=== PATIENT | male | born 1955 | race Caucasian/White ===

== ENCOUNTER → 2016-04-12 | Outpatient (CLI) | payer OTHER ==
[~2016-04-12] MED LIST: ALLERGY RELIEF4 M1 PO; AMARYL2 MG PO; AMLODIPINE BESY10 MG PO; ASPIRIN EC81 M1 PO; ASPIRIN81 M2 PO; BENADRYL25 M1 PO; CLARITIN10 M2 PO; COUMADIN5 MG PO; DULERA 100 MCG/13 GM INH; EC-NAPROSYN500 MG PO; HYDROCHLOROTHIA25 MG PO; JANUVIA PO; K-DUR20 ME1 PO; LIPITOR40 MG PO; METOPROLOL TAR25 MG PO; MONTELUKAST SOD10 MG PO; PANTOPRAZOLE SO40 MG PO; PERCOCET 10/3251 TAB PO; PREDNISONE10 MG PO; PROAIR RESPICL90 MCG; REQUIP2 MG PO; SENOKOT S1 TA1 PO; TOPROL XL 50 MG50 MG PO; TRULICITY0.75 MG/0. SUBQ; TYLENOL EXTRA500 M1 PO
--- NOTE | ~2016-04-12 | EKG ---
PATIENT: JUAN ALBERTO FRY UNIT #: [id number] Ventricular Rate: 95 BPM Atrial Rate: 95 BPM P-R Interval: 174 ms QRS Duration: 92 ms Q-T Interval: 362 ms QTC Calculation(Bezet): 454 ms P [place]: 26 degrees Calculated R [place]: -35 degrees Calculated T [place]: 24 degrees Diagnosis Line: Normal sinus rhythm Diagnosis Line: Left axis deviation Diagnosis Line: Poor R wave progression questionable lead position Diagnosis Line: or body habitus Abnormal ECG Diagnosis Line: No previous ECGs available Diagnosis Line: Confirmed by DUSTIN HUGHES MD ([id number]) on 04/13/2016 Diagnosis Line: 6:17:03 PM INTERPRETING MD: ELLEN MADRIGAL
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
--- NOTE | ~2016-04-12 | CR63 ---
[facility] A Service of [facility] RADIOLOGY TEXT RESULTS PATIENT: JUAN ALBERTO FRY LOCATION: [facility] : 59 UNIT #: [id number] AGE: [address]: Guillermo Nova MD SEX: M ORDER DR: [id number] [facility] [address] [place], [place] [address] [id number] O MR#: [id number] Acc #: [id number] NAME: JUAN ALBERTO FRY : 1955 SEX: M STUDY DATE/TIME: 04/12/2016 9:33 UNIT: [facility] ROOM: STUDY DESCRIPTION: CR Chest 2 View Attending Physician: Guillermo Nova M.D. Ordering Physician: Guillermo Nova M.D. Primary Care Physician: Generic Doctor Not In System MEDICAL IMAGING REPORT This report is preliminary unless electronic signature is present EXAM Chest 2 views dated 04/12/2016. COMPARISON Chest 2 views dated 12/12/2004. HISTORY Preop clearance for right knee pain and osteoarthritis. Patient is to have surgery on 04/27/2016. FINDINGS 2 views of the chest were obtained. PA and lateral examination of the chest upright shows a good expansion of the parenchyma with a normal distribution of the pulmonary vascularity. There is no indication of congestion, effusion, infiltrate, tumor, or nodular density. The pleural reflections and diaphragmatic contours are normal. The cardiac silhouette and mediastinal anatomy is within normal limits. Small anterior endplate osteophytes are noted in the thoracic spine. IMPRESSION Normal chest. Dictated by... Malgorzata Boggs M.D. THIS IS AN ELECTRONICALLY VERIFIED REPORT Malgorzata Boggs M.D. at 04/13/2016 4:57 PM CPR/tmw [facility] A Service [facility] RADIOLOGY TEXT RESULTS PATIENT: JUAN ALBERTO FRY LOCATION: [facility] : [birth year] UNIT #: [id number] AGE: [address]: Guillermo Nova MD SEX: M ORDER DR: TD: 04/12/2016 14:50 JOB #: [id number] MEDICAL IMAGING REPORT COPY
[2016-04-12 09:02] LABS: URINE APPEARANCE CLEAR; URINE BILIRUBIN NEG (NEG); URINE BLOOD NEG (NEG); URINE COLOR YELLOW; URINE GLUCOSE NEG (NEG); URINE KETONE NEG (NEG); URINE LEUKOCYTE ESTERASE NEG (NEG); URINE NITRATE NEG (NEG); URINE PROTEIN NEG (NEG); URINE SPECIFIC GRAVITY 1.028 (1.003-1.035)
[2016-04-12 09:04] LABS: URINE SOURCE CLEAN CATCH
[2016-04-12 09:05] LABS: CULTURE INDICATED? NO
[2016-04-12 09:41] LABS: HEMATOCRIT 48.2 % (38.0-50.0); HEMOGLOBIN 16.3 gm/dL (13.0-16.0); MEAN CELL VOLUME 92.2 FL (83-96); MEAN CORPUSCULAR HEMOGLOBIN 31.2 PG (28-34); MEAN CORPUSCULAR HGB CONC 33.9 g/dL (30-36); MEAN PLATELET VOLUME 8.2 FL (6.5-11.5); RED BLOOD COUNT 5.22 X10e (3.90-5.60); RED CELL DISTRIBUTION WIDTH 14.6 % (11.0-15.5); WHITE BLOOD COUNT 9.3 X10e3 (4.0-10.5)
[2016-04-12 10:16] LABS: PROTHROMBIN TIME (PATIENT) 10.2 SECONDS (9.6-11.5)
[2016-04-12 10:18] LABS: ALBUMIN SERUM 3.8 g/dL (3.5-5.0); ALKALINE PHOSPHATASE 48 U/L (32-92); ALT (SGPT) 18 U/L (10-40); AST (SGOT) 19 U/L (10-42); BILIRUBIN,TOTAL 1.1 mg/dL (0.2-2.0); BLOOD UREA NITROGEN 19 mg/dL (9-23); BUN/CREATININE RATIO 21.11; CALCIUM SERUM 9.4 mg/dL (8.4-10.2); CARBON DIOXIDE 32 mmol/L (22-31); CHLORIDE 97 mmol/L (100-111); CREATININE SERUM 0.9 mg/dL (0.6-1.4); GLOM FILT RATE Estimated ABOVE60 mL/min (>60); GLUCOSE FASTING 110 mg/dL (70-110); POTASSIUM 3.7 mmol/L (3.5-5.1); PROTEIN TOTAL SERUM 7.2 g/dL (6.0-8.3); SODIUM 137 mmol/L (135-145)
== END | disposition home or self-care (01) ==
LOC: CAMB 07:02
PROVIDERS: Orthopaedic Surgery
DX: Z01.818 Encounter for other preprocedural examination (principal); M17.11 Unilateral primary osteoarthritis, right knee; E11.9 Type 2 diabetes mellitus without complications; J45.909 Unspecified asthma, uncomplicated; I10 Essential (primary) hypertension; Z87.19 Personal history of other diseases of the digestive system; Z79.01 Long term (current) use of anticoagulants
CPT/HCPCS: 36415; 71020; 80053; 81003; 83036; 85027; 85610; 86850; 86900; 86901; 87070; 93005

== ENCOUNTER 2016-04-27 06:04 | Inpatient (IN) | payer OTHER ==
--- NOTE | ~2016-04-27 | DS ---
Unit #: [id number] #: [id number] Patient: JUAN ALBERTO FRY [id number] [facility]. [place], [place] [address] [id number] I MR#: [id number] NAME: JUAN ALBERTO FRY ROOM: 450 Age: 60 Sex: M Admission Date: 04/27/2016 : 1955 Discharge Date: 04/30/2016 Attending Physician: Guillermo Nova M.D. Primary Care Physician: Nikia Tolbert M.D. DISCHARGE SUMMARY ADMITTING DIAGNOSIS Primary localized osteoarthritis of the right knee. DISCHARGE DIAGNOSIS Primary localized osteoarthritis of the right knee. PROCEDURES IN HOSPITAL Right total knee. HOSPITAL COURSE The patient was admitted on 04/27/2016, taken to the operating room, where he underwent a right total knee. Postoperatively, he has done fairly well. His incision is healing. His neurovascular exam is intact. He is afebrile today. His sodium dropped postoperatively down to 125, but it has improved to 132 today. It was felt that he can be discharged home. His hemoglobin today is 12.3. His INR was 1.6. He will be discharged on 10 mg of Coumadin daily. We will check his protime on Sunday and . We will also repeat a CBC tomorrow as his white count is slightly elevated at 12.5 today. He will have home physical therapy. He is weightbearing as tolerated. His medications are his routine home medicines except we have stopped his hydrochlorothiazide, because of his low sodium. He will be also on metoprolol 25 mg b.i.d. and KCl 20 mEq b.i.d. for a month. His condition on discharge is improved and his disposition is to home. Dictated by... Marisa Stroud/stephon TD: 04/30/2016 11:12 JOB #: [id number] DISCHARGE SUMMARY X Guillermo Nova MD X DISCHARGE SUMMARY
--- NOTE | ~2016-04-27 | OR ---
Unit #: [id number] #: [id number] Patient: JUAN ALBERTO FRY [id number] [address] [place], [place] [address] [id number] I MR#: [id number] NAME: JUAN ALBERTO FRY ROOM: 450 Date of Procedure: 04/27/2016 Admission Date: 04/27/2016 Surgeon: Guillermo Nova M.D. : 1955 Attending Physician: Guillermo Nova M.D. Primary Care Physician: Nikia Tolbert M.D. OPERATIVE REPORT PREOPERATIVE DIAGNOSIS Primary localized osteoarthritis of the right knee. POSTOPERATIVE DIAGNOSIS Primary localized osteoarthritis of the right knee. PROCEDURE PERFORMED Right total knee. ASSISTANTS Debby Mckenna and Rocael Walker. ANESTHESIA Adductor canal block plus general. ESTIMATED BLOOD LOSS About 150 to 200 mL. DESCRIPTION OF PROCEDURE The patient was brought to the holding room, given 3 g of Kefzol. This will be continued postop, but discontinued within 23 hours the start time of surgery. He was then given an adductor canal block, brought back to the operating room, given a general anesthetic. The tourniquet was placed around the right leg. The right leg was prepped and draped in a sterile fashion and then the tourniquet was inflated to 300. A straight anterior skin incision was made. The subcutaneous dissected away and a medial arthrotomy was performed. Patella was slid to the side. Osteophytes were removed from the femur. The intramedullary guide was used and a 6-degree valgus cut was made on the distal femur. The femur was sized and found to be a size 5. The anterior-posterior cutting block was applied. Rotation was checked in the knee. Anterior and posterior cuts were made along with the chamfer cuts. Proximal tibial cut was made using a 0-degree cutting block. It was sized at 4. Posterior condylar osteophytes were removed. Any remaining meniscal fragments were debrided. The trial femur was applied and the drill holes were made for lugs on the femoral component on the trial tibia, and we found that we needed 8 insert to give appropriate stability. The patella was grasped with 2 towel clips, measured 26 mm thick, cut smooth at 14 and a 41 patella was the appropriate size. Three drill holes were made. Trial patella applied and it tracked properly. We then removed all the trials. The posterior capsule and periosteum were injected with ropivacaine. The drill and punch were used on the tibia while the cement was mixed. The knee was irrigated and dried and then all Unit #: [id number] #: [id number] Patient: JUAN ALBERTO FRY 3 components were cemented simultaneously. Once again, it was a size 5 femur, size 4 tibia, and a 41 patella from the DePuy PFC Sigma Knee System. The patient had all the excess cement removed. The rest of ropivacaine mixture was injected and then the patient had the wound irrigated with a dilute Betadine solution and bacitracin, and then the wound was closed using 0 Ethibond in the arthrotomy, 0 and 2-0 Vicryl in the subcu, and vamshi in the skin. producer assistant, Rocael Walker and Debby Mckenna were present throughout the entire case. Dictated by... Marisa Stroud/stephon TD: 04/28/2016 14:59 JOB #: [id number] OPERATIVE REPORT X Guillermo Nova MD PROCEDURE OPERATIVE NOTE
--- NOTE | ~2016-04-27 | CR63 ---
[facility] A Service of [facility] RADIOLOGY TEXT RESULTS PATIENT: JUAN ALBERTO FRY LOCATION: C4B 450-01 : [birth year] UNIT #: [id number] AGE: [address]: Guillermo Nova MD SEX: M ORDER DR: [id number] [facility] [address] [facility] [place], [place] [address] [id number] I MR#: [id number] Acc #: [id number] NAME: JUAN ALBERTO FRY : 1955 SEX: M STUDY DATE/TIME: 04/29/2016 13:50 UNIT: C4 ROOM: [facility] STUDY DESCRIPTION: CR Chest 2 View Attending Physician: Guillermo Nova M.D. Ordering Physician: Roe Medina M.D. Primary Care Physician: Nikia Tolbert M.D. MEDICAL IMAGING REPORT This report is preliminary unless electronic signature is present EXAM Chest 2 views 04/29/2016 HISTORY 60-year-old male with shortness of air since 04/27/2016. COMPARISON Chest 04/12/2016. FINDINGS 2 views of the chest demonstrate clear lungs. No pleural effusion or pneumothorax. Heart size and mediastinum within normal limits. Pulmonary vasculature unremarkable. IMPRESSION No acute cardiopulmonary findings. Dictated by... Db Donahue M.D. THIS IS AN ELECTRONICALLY VERIFIED REPORT Db Donahue M.D. at 05/01/2016 7:47 AM MARCELA/chad TD: 04/30/2016 13:42 JOB #: [id number] MEDICAL IMAGING REPORT COPY
[~2016-04-27 06:04] MED LIST changes: -BENADRYL25 M1 PO; -COUMADIN5 MG PO; -K-DUR20 ME1 PO; -METOPROLOL TAR25 MG PO; -PERCOCET 10/3251 TAB PO; -SENOKOT S1 TA1 PO
[2016-04-27 07:51] LABS: PROTHROMBIN TIME (PATIENT) 10.3 SECONDS (9.6-11.5)
[2016-04-28 03:09] LABS: HEMATOCRIT 41.3 % (38.0-50.0); HEMOGLOBIN 13.8 gm/dL (13.0-16.0)
[2016-04-28 03:19] LABS: INR 1.2; PROTHROMBIN TIME (PATIENT) 12.9 SECONDS (9.6-11.5)
[2016-04-28 03:32] LABS: BLOOD UREA NITROGEN 15 mg/dL (9-23); BUN/CREATININE RATIO 16.66; CALCIUM SERUM 8.2 mg/dL (8.4-10.2); CARBON DIOXIDE 32 mmol/L (22-31); CHLORIDE 91 mmol/L (100-111); CREATININE SERUM 0.9 mg/dL (0.6-1.4); GLOM FILT RATE Estimated ABOVE60 mL/min (>60); GLUCOSE FASTING 172 mg/dL (70-110); MAGNESIUM 1.5 mg/dL (1.6-3.0); POTASSIUM 3.7 mmol/L (3.5-5.1); SODIUM 129 mmol/L (135-145)
[2016-04-29 03:43] LABS: HEMATOCRIT 41.1 % (38.0-50.0); HEMOGLOBIN 13.6 gm/dL (13.0-16.0)
[2016-04-29 03:58] LABS: INR 1.3; PROTHROMBIN TIME (PATIENT) 13.8 SECONDS (9.6-11.5)
[2016-04-29 04:20] LABS: BLOOD UREA NITROGEN 14 mg/dL (9-23); BUN/CREATININE RATIO 15.55; CALCIUM SERUM 8.2 mg/dL (8.4-10.2); CARBON DIOXIDE 29 mmol/L (22-31); CHLORIDE 88 mmol/L (100-111); CREATININE SERUM 0.9 mg/dL (0.6-1.4); GLOM FILT RATE Estimated ABOVE60 mL/min (>60); GLUCOSE FASTING 192 mg/dL (70-110); MAGNESIUM 1.8 mg/dL (1.6-3.0); POTASSIUM 3.3 mmol/L (3.5-5.1)
[2016-04-29 04:25] LABS: SODIUM 125 mmol/L (135-145)
[2016-04-29 14:32] LABS: OSMOLALITY,SERUM 287 mOsmo/kg (280-300)
[2016-04-29 14:48] LABS: TRIGLYCERIDES 48 mg/dL (10-160)
[2016-04-29 20:50] LABS: URINE APPEARANCE CLEAR; URINE BILIRUBIN NEG (NEG); URINE BLOOD TRACE (NEG); URINE COLOR YELLOW; URINE GLUCOSE 500 MG/DL (NEG); URINE KETONE TRACE (NEG); URINE LEUKOCYTE ESTERASE NEG (NEG); URINE NITRATE NEG (NEG); URINE PROTEIN NEG (NEG); URINE SPECIFIC GRAVITY 1.027 (1.003-1.035); URINE UROBILINOGEN 0.2 MG/DL (NEG)
[2016-04-29 20:52] LABS: URBCS1 AUWI 0-2 /[HPF] (0-2); URINE BACTERIA AUWI NEG (NEGATIVE); URINE SQUAMOUS EPITHELIAL CELL NONE SEEN /[HPF]; UWBCS1 AUWI 0-2 (0-5)
[2016-04-30 03:49] LABS: BASOPHIL% 0.3 % (0-2.5); EOSINOPHIL# 0.3 X10e3 (0-0.7); EOSINOPHIL% 2.3 % (0.0-7.0); HEMATOCRIT 37.7 % (38.0-50.0); HEMOGLOBIN 12.3 gm/dL (13.0-16.0); LYMPHOCYTE# 1.4 X10e3 (1.0-3.5); MEAN CORPUSCULAR HEMOGLOBIN 30.8 PG (28-34); MEAN CORPUSCULAR HGB CONC 32.7 g/dL (30-36); MEAN PLATELET VOLUME 8.6 FL (6.5-11.5); MONOCYTE# 1.2 X10e3 (0-1.0); MONOCYTE% 9.6 % (3.0-12.0); NEUTROPHIL# 9.6 X10e3 (1.5-7.1); NEUTROPHIL% 76.8 % (40-75); PLATELET COUNT 194 X10e3 (140-420); RED BLOOD COUNT 4.01 X10e (3.90-5.60); RED CELL DISTRIBUTION WIDTH 13.9 % (11.0-15.5); WHITE BLOOD COUNT 12.5 X10e3 (4.0-10.5)
[2016-04-30 03:50] LABS: DIFF IND NO
[2016-04-30 04:01] LABS: INR 1.6; PROTHROMBIN TIME (PATIENT) 17.5 SECONDS (9.6-11.5)
[2016-04-30 04:31] LABS: BLOOD UREA NITROGEN 16 mg/dL (9-23); CALCIUM SERUM 8.1 mg/dL (8.4-10.2); CARBON DIOXIDE 34 mmol/L (22-31); CHLORIDE 90 mmol/L (100-111); CREATININE SERUM 0.8 mg/dL (0.6-1.4); GLOM FILT RATE Estimated ABOVE60 mL/min (>60); GLUCOSE FASTING 156 mg/dL (70-110); MAGNESIUM 1.9 mg/dL (1.6-3.0); POTASSIUM 3.5 mmol/L (3.5-5.1); SODIUM 132 mmol/L (135-145)
[2016-04-30] MEDS ORDERED: BENADRYL25 M1 PO (11:50)
[2016-04-30] MEDS ORDERED: METOPROLOL TAR25 MG PO (11:51)
[2016-04-30] MEDS ORDERED: SENOKOT S1 TA1 PO (11:52)
[2016-04-30] MEDS ORDERED: PERCOCET 10/3251 TAB PO (11:53)
[2016-04-30] MEDS ORDERED: K-DUR20 ME1 PO (11:54)
[2016-04-30] MEDS ORDERED: COUMADIN5 MG PO (11:54)
[2016-07-21] MEDS ORDERED: METOPROLOL TAR25 MG PO (12:35)
[2016-07-24] MEDS ORDERED: HYDROCHLOROTHIA25 MG PO (07:32)
== END 2016-04-30 13:40 | disposition home health service (06) | DRG 470 ==
LOC: CSUR 06:04 → CPACUOF 08:00 → C4B 10:52
PROVIDERS: Internal Medicine; Nurse Practitioner; Orthopaedic Surgery
PROC: 0SRC0J9 Replacement of Right Knee Joint with Synthetic Substitute, Cemented, Open Approach (ICD-10-PCS; principal; 2016-04-27 08:30)
DX: M17.11 Unilateral primary osteoarthritis, right knee (principal); E87.1 Hypo-osmolality and hyponatremia; I10 Essential (primary) hypertension; Z68.42 Body mass index [BMI] 45.0-49.9, adult; K21.9 Gastro-esophageal reflux disease without esophagitis; K44.9 Diaphragmatic hernia without obstruction or gangrene; E66.01 Morbid (severe) obesity due to excess calories; E11.9 Type 2 diabetes mellitus without complications; Z79.82 Long term (current) use of aspirin; Z79.84 Long term (current) use of oral hypoglycemic drugs; Z83.3 Family history of diabetes mellitus; Z82.49 Family history of ischemic heart disease and other diseases of the circulatory system; J44.9 Chronic obstructive pulmonary disease, unspecified; J45.909 Unspecified asthma, uncomplicated; E83.42 Hypomagnesemia; R00.0 Tachycardia, unspecified
CPT/HCPCS: 71020; 80048; 81003; 82947; 83735; 83930; 83935; 84478; 85014; 85018; 85025; 85610; 94640; 94660; 94760; 97110; 97116; 97162; 97166; 97530; 97535; C1776; G8978-GP; G8979-GP; G8980-GP; G8987-GO; G8988-GO; J0131; J0171; J0330; J0690; J0735; J1170; J1650; J1815; J1885; J2250; J2370; J2405; J2710; J2795; J3010

== ENCOUNTER → 2016-07-24 | Day surgery (SDC) | payer OTHER ==
[~2016-07-24] MED LIST changes: +BENADRYL25 M1 PO; +COUMADIN5 MG PO; +K-DUR20 ME1 PO; +METOPROLOL TAR25 MG PO; +PERCOCET 10/3251 TAB PO; +SENOKOT S1 TA1 PO
--- NOTE | ~2016-07-24 | OR ---
Unit #: [id number] #: [id number] Patient: JUAN ALBERTO FRY [id number] [address] [address] [id number] O MR#: [id number] NAME: JUAN ALBERTO FRY ROOM: Date of Procedure: 07/24/2016 Admission Date: 07/24/2016 Surgeon: Guillermo Nova M.D. : 1955 Attending Physician: Guillermo Nova M.D. Primary Care Physician: Nikia Tolbert M.D. OPERATIVE REPORT PREOPERATIVE DIAGNOSIS Arthrofibrosis of right total knee. POSTOPERATIVE DIAGNOSIS Arthrofibrosis of right total knee. PROCEDURE PERFORMED Manipulation, right total knee. DESCRIPTION OF PROCEDURE The patient had right total knee range of motion was -5 to about 75 to 80 degrees of flexion. He was brought back to the operating room, given a general anesthetic and then his right knee was manipulated. We were able to gain flexion to 110 with palpable and audible release of adhesions and his extension we were able to get this down to not -2. After the knee was taken through range of motion multiple time, his general anesthetic was reversed. He was transferred to the recovery room. He will attend physical therapy as an outpatient today. Dictated by... Marisa Stroud/stephon TD: 07/26/2016 02:14 JOB #: [id number] OPERATIVE REPORT Page 1 of 1 X Guillermo Nova MD X PROCEDURE OPERATIVE NOTE
[2016-07-24 07:39] LABS: URINE APPEARANCE CLEAR; URINE BILIRUBIN NEG (NEG); URINE BLOOD NEG (NEG); URINE COLOR YELLOW; URINE GLUCOSE NEG (NEG); URINE KETONE NEG (NEG); URINE LEUKOCYTE ESTERASE NEG (NEG); URINE NITRATE NEG (NEG); URINE PROTEIN NEG (NEG); URINE SPECIFIC GRAVITY 1.024 (1.003-1.035); URINE UROBILINOGEN 0.2 MG/DL (NEG)
[2016-07-24 07:42] LABS: URINE SOURCE CLEAN CATCH
[2016-07-24 07:43] LABS: CULTURE INDICATED? NO
[2016-07-24 08:00] LABS: HEMATOCRIT 47.9 % (38.0-50.0); HEMOGLOBIN 15.4 gm/dL (13.0-16.0); MEAN CELL VOLUME 90.2 FL (83-96); MEAN CORPUSCULAR HGB CONC 32.1 g/dL (30-36); MEAN PLATELET VOLUME 8.2 FL (6.5-11.5); RED BLOOD COUNT 5.32 X10e (3.90-5.60); RED CELL DISTRIBUTION WIDTH 15.3 % (11.0-15.5); WHITE BLOOD COUNT 9.8 X10e3 (4.0-10.5)
[2016-07-24 08:11] LABS: CALCIUM SERUM 9.2 mg/dL (8.4-10.2); POTASSIUM 3.4 mmol/L (3.5-5.1)
== END | disposition home or self-care (01) ==
LOC: CSUR 06:54
PROVIDERS: Orthopaedic Surgery
DX: M24.661 Ankylosis, right knee (principal); Z96.651 Presence of right artificial knee joint; E11.9 Type 2 diabetes mellitus without complications; K21.9 Gastro-esophageal reflux disease without esophagitis; I10 Essential (primary) hypertension; J45.909 Unspecified asthma, uncomplicated
CPT/HCPCS: 80048; 81003; 82947; 85027; J2250

== ENCOUNTER → 2016-09-26 | Outpatient (CLI) | payer OTHER | END | disposition home or self-care (01) | LOC: CECH 08:48 | DX: I42.9 Cardiomyopathy, unspecified (principal); G47.33 Obstructive sleep apnea (adult) (pediatric); I36.1 Nonrheumatic tricuspid (valve) insufficiency; I51.7 Cardiomegaly | CPT/HCPCS: 93306 ==

== ENCOUNTER 2016-10-07 10:28 | Emergency (ER) | payer OTHER ==
[~2016-10-07] VITALS: Ht 177.8 cm; Wt 136.1 kg
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
[2016-10-07 11:51] LABS: BASOPHIL# 0.1 X10e3 (0-0.3); BASOPHIL% 0.6 % (0-2.5); EOSINOPHIL# 0.2 X10e3 (0-0.7); EOSINOPHIL% 1.5 % (0.0-7.0); HEMATOCRIT 46.1 % (38.0-50.0); HEMOGLOBIN 15.4 gm/dL (13.0-16.0); LYMPHOCYTE# 2.1 X10e3 (1.0-3.5); LYMPHOCYTE% 18.5 % (17.0-45.0); MEAN CELL VOLUME 90.5 FL (83-96); MEAN CORPUSCULAR HEMOGLOBIN 30.2 PG (28-34); MEAN CORPUSCULAR HGB CONC 33.3 g/dL (30-36); MEAN PLATELET VOLUME 8.6 FL (6.5-11.5); MONOCYTE# 1.1 X10e3 (0-1.0); MONOCYTE% 9.4 % (3.0-12.0); NEUTROPHIL# 8.1 X10e3 (1.5-7.1); PLATELET COUNT 242 X10e3 (140-420); RED BLOOD COUNT 5.09 X10e (3.90-5.60); RED CELL DISTRIBUTION WIDTH 15.8 % (11.0-15.5); WHITE BLOOD COUNT 11.6 X10e3 (4.0-10.5)
[2016-10-07 11:52] LABS: DIFF IND NO
[2016-10-07 12:17] LABS: BUN/CREATININE RATIO 21.25; CALCIUM SERUM 9.3 mg/dL (8.4-10.2); CREATININE SERUM 0.8 mg/dL (0.6-1.4); GLOM FILT RATE Estimated 97.8 mL/min (>60); POTASSIUM 3.8 mmol/L (3.5-5.1)
== END 2016-10-07 14:30 | disposition home or self-care (01) ==
LOC: SED 10:28
PROVIDERS: Emergency Medicine
DX: S20.212A Contusion of left front wall of thorax, initial encounter (principal); M54.2 Cervicalgia; I10 Essential (primary) hypertension; E11.9 Type 2 diabetes mellitus without complications; Z79.82 Long term (current) use of aspirin; Z79.899 Other long term (current) drug therapy; Z88.2 Allergy status to sulfonamides; Z88.8 Allergy status to other drugs, medicaments and biological substances; V43.92XA Unspecified car occupant injured in collision with other type car in traffic accident, initial encounter
CPT/HCPCS: 36415; 70498; 71100; 80048; 85025; 99284; Q9967